=== PATIENT | female | born 1975 | race Two or more races ===

== ENCOUNTER 2019-05-04 09:40 | Outpatient (CLI) | payer OTHER | END 2019-05-04 09:45 | disposition home or self-care (01) | LOC: RX STUDY 09:40 | DX: R10.2 Pelvic and perineal pain (principal); N80.8 Other endometriosis ==

== ENCOUNTER 2020-09-01 05:19 | Day surgery (SDC) | payer OTHER | END 2020-09-01 12:45 | disposition home or self-care (01) | LOC: CIR.AMB 05:19 | PROVIDERS: ATTEND Specialist | DX: D26.1 Other benign neoplasm of corpus uteri (principal); Z20.822 Contact with and (suspected) exposure to COVID-19 ==